=== PATIENT | female | born 1995 | race Caucasian/White ===

== ENCOUNTER 2017-07-11 16:28 | Emergency (ER) | payer MEDICAID ==
[~2017-07-11] VITALS: Ht 160 cm; Wt 68.2 kg
[2017-07-11 17:38] VITALS: BP 137/87
== END 2017-07-11 18:15 | disposition home or self-care (01) ==
LOC: EMS 16:30
DX: R00.2 Palpitations (principal); R07.89 Other chest pain; R42 Dizziness and giddiness; F12.90 Cannabis use, unspecified, uncomplicated
CPT/HCPCS: 81025; 93005; 99283